=== PATIENT | female | born 1965 | race Hispanic/Latino ===

== ENCOUNTER → 2023-05-08 | Outpatient (CLI) | payer BC ==
[~2023-05-08] MED LIST: IOHEXOL 350 MG/ML 100ML INFUS..BTL IV ONE
== END | disposition home or self-care (01) ==
LOC: RAH 09:31
PROVIDERS: ATTEND Student in an Organized Health Care Education/Training Program
DX: R07.9 Chest pain, unspecified (principal)
CPT/HCPCS: 75574; Q9967

== ENCOUNTER → 2024-09-25 | Outpatient (CLI) | payer OTHER ==
--- NOTE | 2024-09-25 11:37 | EKG ---
[facility] Test Date: 2024-09-25 Test Time: 12:35:01 Pat Name: NYA OLVERA Department: LAB Room: Gender: F Lining Layer: [id number] : 1965 Requested By: VÍCTOR NIELSEN Order Number: [id number] Reading MD: Dwight Bills Measurements Intervals [place] Rate: 54 P: 31 CO: 144 QRS: 44 QRSD: 76 T: 80 QT: 474 QTc: 449 Interpretive Statements Sinus bradycardia No previous ECG available for comparison Electronically Signed On 09-25-2024 18:36:19 [employer] by Dwight Bills Please click the below link to view image of tracing.
== END | disposition home or self-care (01) ==
LOC: LAB 11:05
PROVIDERS: ATTEND Psychiatry & Neurology Psychiatry
DX: R00.1 Bradycardia, unspecified (principal); Z79.899 Other long term (current) drug therapy
CPT/HCPCS: 93005